=== PATIENT | male | born 1965 | race Two or more races ===

== ENCOUNTER 2017-10-26 18:06 | Emergency (ER) | payer OTHER ==
[~2017-10-26] VITALS: Ht 177.8 cm; Wt 108.9 kg
[~2017-10-26 18:06] MED LIST: PROTONIX20 MG
[2017-10-26] MEDS ORDERED: LISINOPRIL5 MG (18:21)
== END 2017-10-26 21:27 | disposition home or self-care (01) ==
LOC: ER 18:06
DX: K59.00 Constipation, unspecified (principal); R10.84 Generalized abdominal pain; J32.8 Other chronic sinusitis

== ENCOUNTER 2019-09-22 06:12 | Emergency (ER) | payer OTHER ==
[~2019-09-22] VITALS: Ht 177.8 cm; Wt 111.1 kg
[~2019-09-22 06:12] MED LIST changes: +LISINOPRIL5 MG
[2019-09-22] MEDS ORDERED: ZESTRIL10 M1 (06:28)
[2019-09-22] MEDS ORDERED: XARELTO20 MG (06:29)
[2019-09-22] MEDS ORDERED: CRESTOR5 MG (06:29)
[2019-09-22] MEDS ORDERED: TOPROL XL50 M1 (06:29)
== END 2019-09-22 11:57 | disposition home or self-care (01) ==
LOC: ER 06:12
DX: M94.0 Chondrocostal junction syndrome [Tietze] (principal)

== ENCOUNTER 2021-04-21 16:04 | Inpatient (IN) | payer OTHER ==
[~2021-04-21] VITALS: Ht 165.1 cm; Wt 111.1 kg
[~2021-04-21 16:04] MED LIST changes: +CRESTOR5 MG; +TOPROL XL50 M1; +XARELTO20 MG; +ZESTRIL10 M1
[2021-04-25] MEDS ORDERED: FLAGYL500MG PO (12:53)
[2021-04-25] MEDS ORDERED: INTESTINEX680 M1 PO (12:53)
[2021-04-25] MEDS ORDERED: CIPRO500 MG PO (12:53)
== END 2021-04-25 13:25 | disposition home or self-care (01) | DRG 392 ==
LOC: ER 16:04 → SEC-K 23:53 → MEDI 04-22 11:50
PROVIDERS: ADMIT Internal Medicine; ATTEND Internal Medicine
PROC: BW21ZZZ Computerized Tomography (CT Scan) of Abdomen and Pelvis (ICD-10-PCS; principal; 2021-04-21)
DX: K57.32 Diverticulitis of large intestine without perforation or abscess without bleeding (principal); D72.829 Elevated white blood cell count, unspecified; I10 Essential (primary) hypertension; E78.00 Pure hypercholesterolemia, unspecified; Z79.01 Long term (current) use of anticoagulants; Z88.0 Allergy status to penicillin; Z88.8 Allergy status to other drugs, medicaments and biological substances; Z20.822 Contact with and (suspected) exposure to COVID-19

== ENCOUNTER 2024-08-19 07:09 | Outpatient (CLI) | payer OTHER ==
[~2024-08-19 07:09] MED LIST changes: +CIPRO500 MG PO; +FLAGYL500MG PO; +GABAPENTIN300 M2 PO; +INTESTINEX680 M1 PO
== END 2024-08-19 07:11 | disposition home or self-care (01) ==
LOC: NUCLEAR 07:09
PROVIDERS: ATTEND Internal Medicine
DX: I48.0 Paroxysmal atrial fibrillation (principal)

== ENCOUNTER 2025-03-10 13:58 | Emergency (ER) | payer OTHER ==
[~2025-03-10] VITALS: Ht 177.8 cm; Wt 106.6 kg
[2025-03-10] MEDS ORDERED: 0.9 % SODIUM CHLORIDE 500 ML IV ONE (14:45)
[2025-03-10] MEDS ORDERED: LACTOBACILLUS ACIDOPHILUS 1 CAP CAP PO ONE ×2 (14:45→14:59)
[2025-03-10] MEDS ORDERED: FAMOTIDINE/PF 20 MG/2 ML VIAL IV ONE (14:45)
[2025-03-10] MEDS ORDERED: ONDANSETRON HCL 2 MG/ML VIAL ONE (14:59)
[2025-03-10] MEDS ORDERED: FAMOTIDINE/PF 20 MG/2 ML VIAL ONE (14:59)
[2025-03-10] MEDS ORDERED: ONDANSETRON HCL 2 MG/ML VIAL IV ONE (15:00)
[2025-03-10 15:36] LABS: BASO % 0.2 % (0.1-1.2); EOS % 1.1 % (0.7-7.0); HEMATOCRIT 46.4 % (40.1-51.0); HEMOGLOBIN 15.6 g/dL (13.7-17.5); LYMPH # 2.44 (1.18-3.74); LYMPH % 27.2 % (19.3-53.1); MONO # 0.89 (0.24-0.82); MONO % 9.9 % (4.7-12.5); NEUT # 5.49 (1.56-6.13); NEUT % 61.4 % (34.0-71.1); PLATELET COUNT 155 K/uL (163-369); RED BLOOD COUNT 5.38 M/uL (4.63-6.08); RED CELL DISTRIBUTION WIDTH 13.2 % (11.6-14.4)
[2025-03-10 15:57] LABS: INR 1.06; PARTIAL THROMBOPLASTIN TIME 27.3 SECONDS (22.0-34.0); PROTHROMBIN TIME 11.5 SECONDS (9.0-11.5)
[2025-03-10 16:08] LABS: ALBUMIN 3.9 gm/dL (3.4-5.0); BILIRUBIN TOTAL 0.48 mg/dL (0.3-1.2); CALCIUM 9.3 mg/dL (8.5-10.1); CREATININE SERUM 1.24 mg/dL (0.70-1.30); GFR 59.67; GLOBULINA 4.1 G/DL (2.4-3.5)
[2025-03-10 16:16] LABS: PH,URINE 7.5 (5.0-8.0); URINE APPEARANCE Clear; URINE BILIRRUBIN Negative (NEGATIVE); URINE BLOOD Negative; URINE COLOR Yellow; URINE GLUCOSE Negative (NEGATIVE); URINE KETONE Negative (NEGATIVE); URINE LEUKOCYTE Trace; URINE NITRATE Negative; URINE PROTEIN Negative (NEGATIVE); URINE UROBILINOGEN 0.2 E.U./dl
[2025-03-10 16:17] LABS: URINE BACTERIA 347.5 uL (0.0-1933); URINE EPITHELIAL CELLS 12.7 uL (0.0-38.8); URINE RBC 10.8 uL (0.0-20.8); URINE WBC 14.8 uL (0.0-23.2)
[2025-03-10] MEDS ORDERED: INTESTINEX680 M1 PO (17:31)
[2025-03-10] MEDS ORDERED: PEPCID AC20 MG PO (17:31)
== END 2025-03-10 17:38 ==
LOC: ER 13:58
PROVIDERS: General Practice
DX: R10.31 Right lower quadrant pain (principal); K57.30 Diverticulosis of large intestine without perforation or abscess without bleeding; I10 Essential (primary) hypertension; Z86.73 Personal history of transient ischemic attack (TIA), and cerebral infarction without residual deficits; Z88.6 Allergy status to analgesic agent; Z88.0 Allergy status to penicillin